=== PATIENT | male | born 1995 | race African-American/Black ===

== ENCOUNTER 2017-08-27 18:06 | Emergency (ER) | payer OTHER ==
[~2017-08-27] VITALS: Ht 182.9 cm; Wt 66.0 kg
[2017-08-27] MEDS ORDERED: ONDANSETRON HCL 4MG/2ML VIAL IV STA (20:15)
[2017-08-27] MEDS ORDERED: SODIUM CHLORIDE 0.9% 1,000 ML IV ONE (20:15)
[2017-08-27 20:31] LABS: BASOPHILS % 0.5 % (0.0-2.0); EOSINOPHILS % 0.2 % (0.0-5.0); HEMATOCRIT. 43.6 % (42.0-52.0); HEMOGLOBIN. 14.7 g/dL (14.0-18.0); LYMPHOCYTES % 23.2 % (20.0-50.0); MEAN CORPUSCULAR HEMOGLOBIN 28.3 pg (28.0-32.0); MEAN CORPUSCULAR VOLUME 83.9 fL (80.0-94.0); MONOCYTES % 7.7 % (2.0-8.0); NEUTROPHILS % 68.4 % (40.0-76.0); PLATELET 206 x1000/uL (130-400); RED CELL DISTRIBUTION WIDTH 13.5 % (11.6-14.6)
[2017-08-27 20:37] LABS: PROTHROMBIN TIME 10.9 sec (9.4-11.6)
[2017-08-27 20:44] LABS: CARBON DIOXIDE 30 mEq/L (21-32); CHLORIDE 101 mEq/L (98-107)
[2017-08-27] MEDS ORDERED: FAMOTIDINE 20MG/2ML VIAL IV ONE (21:15)
[2017-08-27 22:22] VITALS: BP 114/68
== END 2017-08-27 22:22 | disposition home or self-care (01) ==
LOC: ER 18:26
DX: R11.2 Nausea with vomiting, unspecified (principal); R10.84 Generalized abdominal pain; J45.909 Unspecified asthma, uncomplicated; F12.10 Cannabis abuse, uncomplicated
CPT/HCPCS: 36415; 80053; 83690; 85025; 85610; 96361; 96374; 96375; 99284; J2405; J3490; J7030

== ENCOUNTER 2024-10-30 01:43 | Emergency (ER) | payer SELFPAY ==
[~2024-10-30] VITALS: Ht 182.9 cm; Wt 70.3 kg
[2024-10-30 02:05] VITALS: O2SAT 100
[2024-10-30 02:06] VITALS: BP 118/80; PULSE 74; RESP 16; TEMP 37.4; O2SAT 99
[2024-10-30] MEDS: KETOROLAC 15MG/ML VIAL IM ONE (03:48)
[2024-10-30] MEDS: METOCLOPRAMIDE HCL 10MG TABLET PO ONE (03:50)
== END 2024-10-31 03:55 | disposition home or self-care (01) ==
LOC: ER 01:43
DX: B34.9 Viral infection, unspecified (principal); F12.90 Cannabis use, unspecified, uncomplicated; J45.909 Unspecified asthma, uncomplicated; Z79.899 Other long term (current) drug therapy
CPT/HCPCS: 99281; 99283